=== PATIENT | female | born 1945 | race Two or more races ===

== ENCOUNTER 2024-06-29 12:16 | Emergency (ER) | payer OTHER ==
[~2024-06-29] VITALS: Ht 152.4 cm; Wt 77.1 kg
[2024-06-29] MEDS ORDERED: TOPROL XL25 M1 PO (12:45)
[2024-06-29] MEDS ORDERED: LOSARTAN POTASS25 MG PO (12:45)
[2024-06-29] MEDS ORDERED: CARDURA XL4 MG PO (12:46)
[2024-06-29] MEDS ORDERED: PLAVIX75 MG PO (12:46)
[2024-06-29] MEDS ORDERED: PROTONIX40 MG PO (12:46)
[2024-06-29] MEDS ORDERED: FAMOtidine 10 MG/ML (4ML VIAL) IV STA (14:40)
[2024-06-29 15:44] LABS: HEMATOCRIT 41.7 % (36.0-45.00); MEAN CORPUSCULAR HEMOGLOBIN 31.5 pg (27.00-32.0); MEAN CORPUSCULAR HGB CONC 33.5 g/dl (32.0-36.0); PLATELET COUNT 167 K/uL (150-450); RED BLOOD COUNT 4.43 M/uL (4.00-6.00); RED CELL DISTRIBUTION WIDTH 13.2 % (11.5-14.5)
[2024-06-29 16:08] LABS: ALBUMIN 3.8 gm/dL (3.4-5.0); BILIRUBIN TOTAL 0.81 mg/dL (0.3-1.2); BILIRUBIN,CONJUGATED 0.16 mg/dL (0.0-0.2); BILIRUBIN,UNCONJUGATED 0.65 mg/dL (0.0-0.6); CALCIUM 9.7 mg/dL (8.5-10.1); CREATININE SERUM 0.9 mg/dL (0.55-1.02); GFR 60.55; POTASSIUM 4.33 mEq/L (3.5-5.1); TOTAL PROTEIN 7.5 gm/dL (6.4-8.2)
[2024-06-29 17:57] LABS: PH,URINE 5.5 (5.0-8.0); URINE APPEARANCE Clear; URINE BILIRRUBIN Negative (NEGATIVE); URINE BLOOD Negative; URINE COLOR Yellow; URINE GLUCOSE Negative (NEGATIVE); URINE KETONE Negative (NEGATIVE); URINE LEUKOCYTE Trace; URINE NITRATE Negative; URINE PROTEIN Negative (NEGATIVE); URINE UROBILINOGEN 0.2 E.U./dl
[2024-06-29 18:01] LABS: URINE BACTERIA 58.7 uL (0.0-1933); URINE EPITHELIAL CELLS 5.8 uL (0.0-38.8); URINE WBC 12.3 uL (0.0-23.2)
[2024-06-29 18:10] LABS: URINE CAST 0.14 uL (0.0-1.40); URINE RBC 1.4 uL (0.0-20.8)
== END 2024-06-29 22:01 | disposition home or self-care (01) ==
LOC: ER 12:19
PROVIDERS: General Practice
DX: R53.81 Other malaise (principal); K80.20 Calculus of gallbladder without cholecystitis without obstruction; R10.9 Unspecified abdominal pain; I10 Essential (primary) hypertension
CPT/HCPCS: 36415; 76700; 96365; 99284; J3490

== ENCOUNTER 2024-12-04 07:24 | Outpatient (CLI) | payer OTHER ==
[~2024-12-04 07:24] MED LIST: CARDURA XL4 MG PO; LOSARTAN POTASS25 MG PO; PLAVIX75 MG PO; PROTONIX40 MG PO; TOPROL XL25 M1 PO
== END 2024-12-04 07:25 | disposition home or self-care (01) ==
LOC: NUCLEAR 07:24
PROVIDERS: ATTEND Internal Medicine
DX: I20.9 Angina pectoris, unspecified (principal)
CPT/HCPCS: 78452; 93017; A9500; J0153

== ENCOUNTER 2024-12-22 04:03 | Emergency (ER) | payer OTHER ==
[~2024-12-22] VITALS: Ht 162.6 cm; Wt 72.6 kg
[2024-12-22] MEDS ORDERED: HYDRODIURIL12.5 MG PO (04:18)
[2024-12-22] MEDS ORDERED: FAMOTIDINE40 MG PO (04:19)
[2024-12-22 08:03] LABS: ALT/SGPT 23.0 U/L (12-78); AST/SGOT 20.0 U/L (15-37); BILIRUBIN TOTAL 0.66 mg/dL (0.3-1.2); BUN CREA RATIO 25.0 (7.0-25.0); CREATININE SERUM 0.79 mg/dL (0.55-1.02); GFR 70.2; GLOBULINA 3.4 G/DL (2.4-3.5); GLUCOSE FASTING 103.0 mg/dL (65-100); OSMOLALITY SERUM 286.0 MOSM/KG (275-295)
[2024-12-22 09:27] LABS: BASO % 0.7 % (0.1-1.2); EOS # 0.10 (0.04-0.54); EOS % 1.8 % (0.7-7.0); LYMPH # 1.82 (1.18-3.74); LYMPH % 32.3 % (19.3-53.1); MEAN PLATELET VOLUME 12.30 fl (9.4-12.4); MONO # 0.43 (0.24-0.82); MONO % 7.6 % (4.7-12.5); NEUT # 3.24 (1.56-6.13); NEUT % 57.4 % (34.0-71.1); RED CELL DISTRIBUTION WIDTH 12.7 % (11.6-14.4)
== END 2024-12-22 14:13 | disposition home or self-care (01) ==
LOC: ER 04:03
DX: K21.9 Gastro-esophageal reflux disease without esophagitis (principal); R07.89 Other chest pain; I10 Essential (primary) hypertension; I51.7 Cardiomegaly